=== PATIENT | male | born 1950 | race Caucasian/White ===

== ENCOUNTER 2016-06-01 15:24 | Emergency (ER) | payer MEDICARE, OTHER ==
[2016-06-01 15:44] VITALS: BP 173/83
[2016-06-01] MEDS ORDERED: IPRATROPIUM/ALBUTEROL 0.5-2.5 MG/3 ML AMPUL NEB ONE (16:08)
[2016-06-01] MEDS ORDERED: PREDNISONE 20 MG TABLET PO ONE (16:08)
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
== END 2016-06-01 23:17 | disposition left against medical advice (07) ==
LOC: ER 15:24
DX: Z53.9 Procedure and treatment not carried out, unspecified reason (principal); R09.89 Other specified symptoms and signs involving the circulatory and respiratory systems; R50.9 Fever, unspecified; E11.9 Type 2 diabetes mellitus without complications
CPT/HCPCS: 94640; 99281; 71020; A9270 ×2; J7512; J7620

== ENCOUNTER 2016-11-02 12:07 | Emergency (ER) | payer OTHER, MEDICARE ==
[2016-11-02 12:13] VITALS: BP 146/81
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
--- NOTE | 2016-11-02 14:15 | RADIOLOGY REPORT (SQ) ---
EXAM DESCRIPTION: CHEST PA/LAT COMPLETED DATE/TIME: 11/02/2016 2:03 pm REASON FOR STUDY: cough x 1 wk, hx/o pneumonia COMPARISON: May 2016 EXAM PARAMETERS: NUMBER OF VIEWS: two views TECHNIQUE: Digital Frontal and Lateral radiographic views of the chest acquired. RADIATION DOSE: NA LIMITATIONS: none FINDINGS: LUNGS AND PLEURA: No acute consolidations or pleural effusions are identified. Again ther e is some prominence of the bronchovascular markings extending into the left lung base which could co nceivably represent peribronchial inflammatory changes. No pneumothorax is seen. MEDIASTINUM AND HILAR STRUCTURES: No masses or contour abnormalities. HEART AND VASCULAR STRUCTURES: Heart normal size. No evidence for failure. BONES: No acute findings. HARDWARE: None in the chest. OTHER: No other significant finding. IMPRESSION: No acute consolidations or pleural effusions are identified. Again there is some promin ence of the bronchovascular markings extending into the left lung base which could conceivably repres ent peribronchial inflammatory changes. No pleural effusion is seen. Other findings as noted above TECHNICAL DOCUMENTATION: JOB ID: [id number] [employer]- All Rights Reserved
== END 2016-11-02 14:37 | disposition home or self-care (01) ==
LOC: ER 12:07
DX: J40 Bronchitis, not specified as acute or chronic (principal); R05 Cough; R09.89 Other specified symptoms and signs involving the circulatory and respiratory systems; R09.81 Nasal congestion
CPT/HCPCS: 71020; 99283

== ENCOUNTER 2017-04-03 16:19 | Emergency (ER) | payer MEDICARE, OTHER ==
[2017-04-03 16:28] VITALS: BP 140/71
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
--- NOTE | 2017-04-03 17:09 | RADIOLOGY REPORT (SQ) ---
EXAM DESCRIPTION: CHEST PA/LAT COMPLETED DATE/TIME: 04/03/2017 4:59 pm REASON FOR STUDY: cough, congestion COMPARISON: 11/02/2016 EXAM PARAMETERS: NUMBER OF VIEWS: two views TECHNIQUE: Digital Frontal and Lateral radiographic views of the chest acquired. RADIATION DOSE: NA LIMITATIONS: none FINDINGS: LUNGS AND PLEURA: No developing infiltrates or pleural effusion. Somewhat heavy basilar m arkings again noted, stable appearance. MEDIASTINUM AND HILAR STRUCTURES: No masses or contour abnormalities. HEART AND VASCULAR STRUCTURES: Heart normal size. No evidence for failure. BONES: No acute findings. HARDWARE: None in the chest. OTHER: No other significant finding. IMPRESSION: Nothing acute. TECHNICAL DOCUMENTATION: JOB ID: [id number] [employer]- All Rights Reserved
== END 2017-04-03 18:57 | disposition home or self-care (01) ==
LOC: ER 16:19
DX: J06.9 Acute upper respiratory infection, unspecified (principal); E11.9 Type 2 diabetes mellitus without complications; Z79.84 Long term (current) use of oral hypoglycemic drugs; E78.00 Pure hypercholesterolemia, unspecified; I10 Essential (primary) hypertension
CPT/HCPCS: 71046; 99283

== ENCOUNTER 2017-04-22 15:11 | Emergency (ER) | payer MEDICARE, OTHER ==
[2017-04-22] MEDS ORDERED: NORMAL SALINE 1000 ML 1,000 ML IV ONE (16:20)
[2017-04-22] MEDS ORDERED: ONDANSETRON HCL INJ/PF 4 MG/2 ML SDV IV ONE (16:21)
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
[2017-04-22 17:05] LABS: ABSOLUTE LYMPHOCYTES (AUTO) 0.9 10^3/uL (0.5-4.7); ABSOLUTE MONOCYTES (AUTO) 0.7 10^3/uL (0.1-1.4); ABSOLUTE NEUT (AUTO) 16.4 10^3/uL (1.7-8.2); BASOPHILS % (AUTO) 0.2 % (0-2); EOSINOPHILS % (AUTO) 0.1 % (0-6); HEMATOCRIT 51.4 % (37.9-51.0); HEMOGLOBIN 17.8 g/dL (13.5-17.0); LYMPHOCYTES % (AUTO) 5.1 % (13-45); MEAN CORPUSCULAR HEMOGLOBIN 31.4 pg (27.0-33.4); MEAN CORPUSCULAR HGB CONC 34.7 g/dL (32.0-36.0); MEAN CORPUSCULAR VOLUME 90 fl (80-97); MONOCYTES % (AUTO) 3.8 % (3-13); PLATELET COUNT 433 10^3/uL (150-450); RED BLOOD COUNT 5.68 10^6/uL (4.35-5.55); RED CELL DISTRIBUTION WIDTH 12.9 % (11.5-14.0); SEGMENTED NEUTROPHILS % (AUTO) 90.8 % (42-78); TOTAL CELLS COUNTED % (AUTO) 100 %
--- NOTE | 2017-04-22 17:16 | RADIOLOGY REPORT (SQ) ---
EXAM DESCRIPTION: ACUTE ABDOMEN SERIES COMPLETED DATE/TIME: 04/22/2017 5:07 pm REASON FOR STUDY: vomiting COMPARISON: Chest radiograph from 04/03/2017 NUMBER OF VIEWS: Three views. TECHNIQUE: Frontal chest, supine abdomen and upright/decubitus abdomen radiographic images acquired. LIMITATIONS: None. FINDINGS: CHEST: Lungs clear of infiltrates. FREE AIR: None. No abnormal gas collections. BOWEL GAS PATTERN: Nonobstructive pattern. No dilated loops or air fluid levels. CALCIFICATIONS: No suspicious calcifications. HARDWARE: Surgical clips project on upon the left aspect of the lumbar spine. SOFT TISSUES: No gross mass or suggestion of organomegaly. BONES: No acute fracture. No worrisome bone lesions. OTHER: No other significant finding. IMPRESSION: NO RADIOGRAPHIC EVIDENCE FOR ACUTE ABDOMINAL DISEASE. TECHNICAL DOCUMENTATION: JOB ID: [id number] [employer]- All Rights Reserved Reading location - IP/workstation name: [email or web address]
[2017-04-22 17:20] LABS: APPEARANCE,URINE SLIGHTLY-CLOUDY; BILIRUBIN,URINE NEGATIVE (NEGATIVE); COLOR,URINE YELLOW; GLUCOSE, URINE NEGATIVE (NEGATIVE); KETONES,URINE NEGATIVE (NEGATIVE); LEUKOCYTE ESTERASE,URINE NEGATIVE (NEGATIVE); NITRITE,URINE NEGATIVE (NEGATIVE); PROTEIN,URINE 30 mg/dL (NEGATIVE); URINE SPECIFIC GRAVITY 1.029
[2017-04-22 17:24] LABS: ALANINE AMINOTRANSFERASE 62 U/L (21-72); ALBUMIN 5.2 g/dL (3.5-5.0); ALKALINE PHOSPHATASE 93 U/L (38-126); ANION GAP 18 (5-19); ASPARTATE AMINO TRANSFERASE 53 U/L (17-59); BILIRUBIN,DIRECT 0.5 mg/dL (0.0-0.4); BILIRUBIN,TOTAL 0.8 mg/dL (0.2-1.3); BLOOD UREA NITROGEN 24 mg/dL (7-20); CALCIUM 10.6 mg/dL (8.4-10.2); CARBON DIOXIDE 29 mmol/L (22-30); CHLORIDE 96 mmol/L (98-107); GLUCOSE 164 mg/dL (75-110); SODIUM 142.6 mmol/L (137-145); TOTAL PROTEIN 8.9 g/dL (6.3-8.2)
--- NOTE | 2017-04-22 18:59 | RADIOLOGY REPORT (SQ) ---
EXAM DESCRIPTION: CT ABD/PELVIS WITH IV ONLY COMPLETED DATE/TIME: 04/22/2017 6:43 pm REASON FOR STUDY: vomiting leukocytosis COMPARISON: 05/29/2011 TECHNIQUE: CT scan of the abdomen and pelvis performed using helical scanning technique with dynamic intravenous contrast injection. No oral contrast. Images reviewed with lung, soft tissue, and bone windows. Reconstructed coronal and sagittal MPR images reviewed. Delayed images for evaluation of the urinary system also acquired. All images stored on PACS. All CT scanners at this facility use dose modulation, iterative reconstruction, and/or weight based d osing when appropriate to reduce radiation dose to as low as reasonably achievable (ALARA). [facility]: Dose Right [facility]: CareDose [facility]: Dose Right [facility]: Teradose 4D [facility]: Vital Connect CONTRAST TYPE AND DOSE: contrast/concentration: Isovue 370.00 mg/ml; Total Contrast Delivered: 100.0 ml; Total Saline Delivered: 72.0 ml RENAL FUNCTION: BUN 24; creatinine 0.84 RADIATION DOSE: CT Rad equipment meets quality standard of care and radiation dose reduction techniq ues were employed. CTDIvol: 17.0 - 18.8 mGy. DLP: 2061 mGy-cm.. LIMITATIONS: None. FINDINGS: LOWER CHEST: Stable bibasilar scarring. LIVER: Normal size. No masses. No dilated ducts. SPLEEN: Normal size. No focal lesions. PANCREAS: No masses. No significant calcifications. No adjacent inflammation or peripancreatic fluid collections. Pancreatic duct not dilated. GALLBLADDER: No identified stones by CT criteria. No inflammatory changes to suggest cholecystitis. ADRENAL GLANDS: No significant masses or asymmetry. RIGHT KIDNEY AND URETER: No solid masses. No significant calcifications. No hydronephrosis or hyd roureter. LEFT KIDNEY AND URETER: No solid masses. No significant calcifications. No hydronephrosis or hydr oureter. AORTA AND VESSELS: No aneurysm. No dissection. Renal arteries, SMA, celiac without stenosis. RETROPERITONEUM: No retroperitoneal adenopathy, hemorrhage or masses. Surgical clips are seen along the left retroperitoneum. BOWEL AND PERITONEAL CAVITY: No masses or inflammatory changes. No free fluid or peritoneal masses. APPENDIX: Normal. PELVIS: No mass. No free fluid. Normal bladder. ABDOMINAL WALL: No masses. No hernias. BONES: No significant or acute findings. OTHER: No other significant finding. IMPRESSION: NO SIGNIFICANT OR ACUTE FINDING IN THE ABDOMEN OR PELVIS ON CT SCAN WITH IV CONTRAST. TECHNICAL DOCUMENTATION: JOB ID: [id number] Quality ID # [id number]: Final reports with documentation of one or more dose reduction techniques (e.g., Au tomated exposure control, adjustment of the mA and/or kV according to patient size, use of iterative reconstruction technique) 2010 [employer]- All Rights Reserved Reading location - IP/workstation name: [email or web address]
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
[2017-04-22 19:45] VITALS: BP 142/93
== END 2017-04-22 19:45 | disposition home or self-care (01) ==
LOC: ER 15:11
DX: R11.11 Vomiting without nausea (principal); D72.829 Elevated white blood cell count, unspecified; I10 Essential (primary) hypertension; E11.9 Type 2 diabetes mellitus without complications; Z88.8 Allergy status to other drugs, medicaments and biological substances
CPT/HCPCS: 99284; 96361; 96374; 36415; 82962; 85025; 80053; 81001; 74022; 74177; J2405; J7030

== ENCOUNTER 2017-10-23 20:23 | Emergency (ER) | payer MEDICARE, OTHER | END 2017-10-23 23:57 | disposition left against medical advice (07) | LOC: ER 20:23 | DX: Z53.21 Procedure and treatment not carried out due to patient leaving prior to being seen by health care provider (principal); R22.0 Localized swelling, mass and lump, head ==

== ENCOUNTER 2017-10-24 09:36 | Emergency (ER) | payer MEDICARE, OTHER ==
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
[2017-10-24] MEDS ORDERED: FLUCONAZOLE 100 MG TABLET PO ONE ×3 (12:51→13:30)
[2017-10-24 13:01] LABS: ALANINE AMINOTRANSFERASE 41 U/L (21-72); ALBUMIN 4.8 g/dL (3.5-5.0); ALKALINE PHOSPHATASE 88 U/L (38-126); ANION GAP 12 (5-19); ASPARTATE AMINO TRANSFERASE 29 U/L (17-59); BILIRUBIN,DIRECT 0.3 mg/dL (0.0-0.4); BILIRUBIN,TOTAL 0.8 mg/dL (0.2-1.3); BLOOD UREA NITROGEN 13 mg/dL (7-20); CALCIUM 10.4 mg/dL (8.4-10.2); CARBON DIOXIDE 27 mmol/L (22-30); CHLORIDE 100 mmol/L (98-107); GLUCOSE 138 mg/dL (75-110); POTASSIUM 4.8 mmol/L (3.6-5.0); SODIUM 138.8 mmol/L (137-145); TOTAL PROTEIN 8.3 g/dL (6.3-8.2)
[2017-10-24 13:13] LABS: HEMATOCRIT 46.2 % (37.9-51.0); HEMOGLOBIN 15.9 g/dL (13.5-17.0); RED BLOOD COUNT 5.06 10^6/uL (4.35-5.55); WHITE BLOOD COUNT 11.2 10^3/uL (4.0-10.5)
[2017-10-24 13:14] LABS: ABSOLUTE BASOPHILS # (AUTO) 0.1 10^3/uL (0.0-0.2); ABSOLUTE EOSINOPHILS # (AUTO) 0.7 10^3/uL (0.0-0.6); ABSOLUTE LYMPHOCYTES (AUTO) 2.2 10^3/uL (0.5-4.7); ABSOLUTE NEUT (AUTO) 7.1 10^3/uL (1.7-8.2); BASOPHILS % (AUTO) 0.9 % (0-2); EOSINOPHILS % (AUTO) 6.1 % (0-6); LYMPHOCYTES % (AUTO) 19.6 % (13-45); MEAN CORPUSCULAR HEMOGLOBIN 31.4 pg (27.0-33.4); MEAN CORPUSCULAR HGB CONC 34.3 g/dL (32.0-36.0); MEAN CORPUSCULAR VOLUME 91 fl (80-97); MONOCYTES % (AUTO) 9.4 % (3-13); PLATELET COUNT 364 10^3/uL (150-450); RED CELL DISTRIBUTION WIDTH 13.1 % (11.5-14.0); TOTAL CELLS COUNTED % (AUTO) 100 %
[2017-10-24 13:28] VITALS: BP 151/79
== END 2017-10-24 13:25 | disposition home or self-care (01) ==
LOC: ER 09:36
DX: B37.0 Candidal stomatitis (principal); E11.9 Type 2 diabetes mellitus without complications; Z79.84 Long term (current) use of oral hypoglycemic drugs
CPT/HCPCS: 99282; 36415; 87070; 87210; 87880; 85025; 80053; A9270

== ENCOUNTER 2018-08-01 13:24 | Emergency (ER) | payer MEDICARE, OTHER ==
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
--- NOTE | 2018-08-01 15:33 | RADIOLOGY REPORT (SQ) ---
EXAM DESCRIPTION: CHEST 2 VIEWS COMPLETED DATE/TIME: 08/01/2018 3:18 pm REASON FOR STUDY: cough COMPARISON: 04/03/2017 EXAM PARAMETERS: NUMBER OF VIEWS: two views TECHNIQUE: Digital Frontal and Lateral radiographic views of the chest acquired. RADIATION DOSE: NA LIMITATIONS: none FINDINGS: LUNGS AND PLEURA: No opacities, masses or pneumothorax. No pleural effusion. MEDIASTINUM AND HILAR STRUCTURES: No masses or contour abnormalities. HEART AND VASCULAR STRUCTURES: Heart normal size. No evidence for failure. BONES: No acute findings. HARDWARE: None in the chest. OTHER: No other significant finding. IMPRESSION: No acute abnormality of the lungs. No focal airspace opacity. TECHNICAL DOCUMENTATION: JOB ID: [id number] [employer]- All Rights Reserved Reading location - IP/workstation name: [email or web address]
[2018-08-01 16:14] LABS: ABSOLUTE BASOPHILS # (AUTO) 0.1 10^3/uL (0.0-0.2); ABSOLUTE EOSINOPHILS # (AUTO) 0.4 10^3/uL (0.0-0.6); ABSOLUTE LYMPHOCYTES (AUTO) 1.7 10^3/uL (0.5-4.7); ABSOLUTE MONOCYTES (AUTO) 0.8 10^3/uL (0.1-1.4); ABSOLUTE NEUT (AUTO) 6.1 10^3/uL (1.7-8.2); EOSINOPHILS % (AUTO) 4.4 % (0-6); HEMOGLOBIN 15.1 g/dL (13.5-17.0); MEAN CORPUSCULAR HEMOGLOBIN 31.8 pg (27.0-33.4); MEAN CORPUSCULAR VOLUME 91 fl (80-97); MONOCYTES % (AUTO) 8.4 % (3-13); PLATELET COUNT 319 10^3/uL (150-450); RED BLOOD COUNT 4.75 10^6/uL (4.35-5.55); RED CELL DISTRIBUTION WIDTH 12.9 % (11.5-14.0); SEGMENTED NEUTROPHILS % (AUTO) 67.2 % (42-78); TOTAL CELLS COUNTED % (AUTO) 100 %; WHITE BLOOD COUNT 9.1 10^3/uL (4.0-10.5)
[2018-08-01 16:32] LABS: ALANINE AMINOTRANSFERASE 60 U/L (21-72); ALBUMIN 4.6 g/dL (3.5-5.0); ALKALINE PHOSPHATASE 102 U/L (38-126); ANION GAP 10 (5-19); ASPARTATE AMINO TRANSFERASE 39 U/L (17-59); BILIRUBIN,DIRECT 0.3 mg/dL (0.0-0.4); BILIRUBIN,TOTAL 0.6 mg/dL (0.2-1.3); BLOOD UREA NITROGEN 13 mg/dL (7-20); CARBON DIOXIDE 29 mmol/L (22-30); CHLORIDE 100 mmol/L (98-107); GLUCOSE 117 mg/dL (75-110); POTASSIUM 4.4 mmol/L (3.6-5.0); SODIUM 138.5 mmol/L (137-145); TOTAL PROTEIN 7.7 g/dL (6.3-8.2)
--- NOTE | 2018-08-01 20:48 | EKG REPORT ---
SEVERITY:- BORDERLINE ECG - SINUS TACHYCARDIA BORDERLINE INFERIOR Q WAVES BORDERLINE T WAVE ABNORMALITIES : Confirmed by: Elizabeth Easley MD 01-Aug-2018 20:47:01
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
[2018-08-01] MEDS ORDERED: ALBUTEROL SULFATE HFA (90 MCG/PUFF) 8 GM MDI (1 MDI/ER DISP) IH ONE (21:34)
[2018-08-01] MEDS ORDERED: AZITHROMYCIN 250 MG TABLET PO ONE (21:36)
--- NOTE | 2018-08-01 23:37 | RADIOLOGY REPORT (SQ) ---
CT CHEST ANGIOGRAPHY WITHOUT THEN WITH IV CONTRAST EXAM DATE: 08/01/2018 10:45 PM CDT HISTORY: Shortness of breath. COMPARISON: None. TECHNIQUE: CT angiogram of the chest with IV contrast. 3-D MIP images were obtained in coronal and sagittal reconstructions. This exam was performed according to our departmental dose-optimization program, which includes automated exposure control, adjustment of the mA and/or kV according to patient size and/or use of iterative reconstruction technique. FINDINGS: No filling defects are seen in the pulmonary trunk or the left and right main pulmonary artery. There is limited evaluation of the segmental branches due to suboptimal bolus timing. The thoracic aorta is normal caliber without aneurysm or dissection. Mild emphysematous changes are present. The thyroid gland is normal. No mediastinal or hilar adenopathy. The heart size is normal without pericardial effusion. No consolidation, pleural effusion, or pneumothorax is identified. The visualized upper abdomen demonstrates no acute findings. No acute osseous findings are seen. IMPRESSION: No central pulmonary embolism.
[2018-08-02 02:00] VITALS: BP 160/82
== END 2018-08-02 01:15 | disposition home or self-care (01) ==
LOC: ER 13:24
DX: R05 Cough (principal); R09.81 Nasal congestion; R00.0 Tachycardia, unspecified; R06.01 Orthopnea; I10 Essential (primary) hypertension; E11.9 Type 2 diabetes mellitus without complications
CPT/HCPCS: 93005; 99284; 36415; 85025; 80053; 84484; 85379; 83880; 71046; 71275; 93010; A9270; J3490